=== PATIENT | male | born 1935 | race Caucasian/White ===

== ENCOUNTER 2016-07-01 14:43 | Inpatient (IN) | payer OTHER, BC ==
[~2016-07-01] VITALS: Ht 182.9 cm; Wt 104.3 kg
--- NOTE | ~2016-07-01 | D ---
[facility] [place] [address] DISCHARGE SUMMARY Name: KT HALE Room #: 418-P [facility] IN M.R.#: [id number] Admission: 07/01/16 Attend Phys: Jayne Molina Discharge: 07/07/16 Date of : 37 Report #: [id number] THIS REPORT FOR: //name// CC: Davi Angulo FINAL DIAGNOSES: 1. Acute bronchitis. 2. Acute on chronic diastolic congestive heart failure. 3. Esophageal dysmotility. 4. Chronic myasthenia gravis. 5. Diabetes type 2. 6. Senile dementia. PROCEDURES: EGD with esophageal dilatation. HOSPITAL COURSE: The patient was admitted from his assisted living facility with cough, congestion, shortness of breath and was concerned of possible congestive heart failure. Diuretics were administered. He also had slightly elevated white count and antibiotics were added for empiric coverage of bronchitis. He was having difficulty swallowing. Speech therapy assessed him; they felt this was a mechanical issue. EGD was performed by the GI service. He had Schatzki ring in an esophageal area that was dilated. This seemed to improve his symptoms. Echocardiogram revealed an ejection fraction 55-60%, a consideration of diastolic congestive heart failure. This cough, congestion and edema improved with diuretics. Blood sugars were monitored and insulin adjusted accordingly. He was pleasantly confused during his stay consistent with his baseline dementia. Neurology service assessed given his history of myasthenia gravis and they did not recommend any change in his medication at this time. PHYSICAL EXAMINATION: VITAL SIGNS: On the day of discharge, he was awake and alert, sitting up in the wheelchair in no distress. He was afebrile with blood pressure 124/62 and O2 sat 90% on room air. LUNGS: Clear. HEART: Regular. ABDOMEN: Soft. EXTREMITIES: Showed just trace ankle edema. DISPOSITION: He will transfer to the [facility] for physical, occupational and speech therapy, diabetic diet and activity as tolerated. Follow up with Dr. Angulo in 3 weeks. I signed his transfer medication list. He will continue Zithromax for an additional 3 days. <ELECTRONICALLY SIGNED> By: Robert Kelley MD 07/07/16 1730 1404 1621 Robert Kelley MD /nt
--- NOTE | ~2016-07-01 | H ---
[facility] [place] [address] HISTORY AND PHYSICAL Name: KT HALE Room #: 418-P ADM IN .R.#: [id number] Admission: 07/01/16 Attend Phys: Jayne Molina Discharge: Date of : 37 Report #: [id number] THIS REPORT FOR: //name// CC: Davi Angulo DATE OF SERVICE: 07/01/2016 CHIEF COMPLAINT: Shortness of breath. HISTORY OF PRESENT ILLNESS: The patient is a 80-year-old gentleman who was admitted through the Emergency Room from the ____ with shortness of breath. All the history is obtained from his son as the patient has some short term memory loss and mild dementia and really could not give any details of the history. The son said he has had some swelling now, progressively worsening over the last several months. He had an echocardiogram taken in ____ [facility] within the last month or so, but does not know those results. His diuretic dose had been doubled at the ____ and he had improvement in some of the swelling; however, in the last few days, he is still progressively short of breath and has been coughing up phlegm and mucus. He was brought to the Emergency Room today. PAST MEDICAL HISTORY: Myasthenia gravis mainly ocular and oropharyngeal symptoms, diabetes type 2, heart disease, pneumonia, hypertension. PAST SURGICAL HISTORY: He has had prostatectomy, I believe, for prostate cancer; cardiac bypass 4-vessel years ago; hip replacement in 2014 due to a fall and fracture; pacemaker implant 2007. FAMILY MEDICAL HISTORY: Noncontributory. SOCIAL HISTORY: As mentioned, he has been living at the ____ for about 2 years. Per son he has become progressively weak. No chronic alcohol or tobacco use. ALLERGIES: None. MEDICATIONS: Fosamax, calcium, Coreg 12.5 mg b.i.d., cholestyramine, Lexapro 10 mg, Lasix 40 mg, losartan 100 mg, multivitamin, Prilosec, potassium 20 mEq, prednisone 50 mg a day, pyridostigmine 60 mg 2 tabs t.i.d., Zocor 10 mg, Humalog 12 units with meals, Lantus 25 units at bedtime, tramadol, aspirin, DuoNeb, Tylenol. REVIEW OF SYSTEMS: He has had some cough and congestion. He denies chest pain, nausea, vomiting, diarrhea, constipation, dysuria, syncope, falls. PHYSICAL EXAMINATION: VITAL SIGNS: Per the nursing note. GENERAL: He is awake and alert, sitting up in [place] [address] HISTORY AND PHYSICAL Name: KT HALE Room #: 418-P [facility] IN M.R.#: [id number] Admission: 07/01/16 Attend Phys: Jayne Molina Discharge: Date of : 37 Report #: [id number] HEENT: Extraocular movements are intact. NECK: No JVD. LUNGS: Diminished breath sounds, clear anteriorly. HEART: Regular, no murmur. ABDOMEN: Soft, normoactive bowel sounds. EXTREMITIES: 1+ ankle edema. NEUROLOGIC: Motor strength 4/5 throughout. BNP was 2200. Urinalysis was negative. White count was 14.8. Chest x-ray was interpreted as clear, but there is some central venous congestion, pacemaker is noted. ASSESSMENT: 1. Acute decompensated congestive heart failure. 2. Acute bronchitis. 3. Diabetes type 2. 4. Chronic myasthenia gravis. 5. Hypertension. 6. Mild senile dementia. PLAN: He is admitted to telemetry. Lasix and empiric antibiotics for now. I will ask the Neurology and Cardiology team to see him and repeat the echocardiogram. Lovenox for DVT prophylaxis. <ELECTRONICALLY SIGNED> By: Robert Kelley MD 07/02/16 0937 1808 1859 Robert Kelley MD /nt
--- NOTE | ~2016-07-01 | 2DMMODE ---
[facility] [place] [address] 2 D/M-MODE ECHOCARDIOGRAM Name: KT HALE Room #: 418-P [facility] IN ..#: [id number] Admission: 07/01/16 Attend Phys: Davi Barnes Discharge: Date of : 37 Date of Service: 07/02/16 0841 Report #: [id number] THIS REPORT FOR: //name// Transthoracic Echocardiography Ordering physician: Robert Kelley Referring physician: Davi Angulo David W. Billing Representative: Sayda Puentes Indications/History: Short of air. CHF. Hx: CABG, pacemaker, CHF, CM, DM, HTN BP: 125 / HR: 63bpm Height: 72in Weight: 230.5lb 53 Study data: M-mode, complete 2D, complete spectral Doppler, and color Doppler. Location: Bedside. Routine. Image quality was adequate. The study was technicallydifficult due to body habitus. 2D measurements Normal Normal LVID ED 43.2mm 36-57 IVS ED 12.6mm 6-11 LVID ES 27.3mm 23-40 LVPW ED 11.9mm 6-11 LA volume 28ml/m2 16-28 AoRoot diam 37mm 21-37 index ED LVOT diameter 21mm 18-23 Findings: Left ventricle: The cavity size was normal. Wall thickness was increased in a pattern of mild LVH. Systolic function was normal. The estimated ejection fraction was in the range of 55% to 60%. Wall motion was normal. Right ventricle: Not well visualized. The cavity size appears dilated with preserved function. Right atrium: The atrium was dilated. Pacer wire or catheter noted in right atrium. Left atrium: The atrium was mildly dilated. Volume index: 28ml/m2 (S). Aortic valve: Trileaflet; moderately thickened, moderately [facility] [address] [place] [address] 2 D/M-MODE ECHOCARDIOGRAM Name: KT HALE Room #: 418-P [facility] IN [facility]#: [id number] Admission: 07/01/16 Attend Phys: Davi Barnes Discharge: Date of : 37 Date of Service: 07/02/16 0841 Report #: [id number] calcified leaflets. Doppler: There was mild stenosis. Valve area of 1.5cm2 by continuity equation. No regurgitation. Peak velocity: 248.9cm/s (S). Mean gradient: 12.3mm Hg (S). Peak gradient: 24.8mm Hg (S). Mitral valve: Moderately calcified annulus. Mildly thickened leaflets . Doppler: There was no evidence for stenosis. Mild regurgitation. Peak E-wave velocity: 130.1cm/s. Peak gradient: 6.8mm Hg (D). Peak A-wave velocity: 142.7cm/s. Tricuspid valve: Structurally normal valve. Doppler: There was no evidence for stenosis. Mild-moderate regurgitation. Regurgitant peak velocity: 352.9cm/s. Peak RV-RA gradient: 50mm Hg (S). Pulmonic valve: Structurally normal valve. Doppler: There was no evidence for stenosis. Trivial regurgitation. Pericardium: There was no pericardial effusion. Aorta: Aortic root: The aortic root measured at the upper limits of normal. Ascending aorta was also at the upper limits of normal. Pulmonary artery: Systolic pressure was estimated to be 60mm Hg. Diastolic function: Doppler parameters are consistent with abnormal left ventricular relaxation (grade 1 diastolic dysfunction). Systemic veins: Inferior vena cava: The vessel was dilated; the respirophasic diameter changes were in the normal range (= 50%). Conclusions 1. Left ventricle: Systolic function was normal. The estimated ejection fraction was in the range of 55% to 60%. Wall motion was normal. 2. Aortic valve: Trileaflet; moderately thickened, moderately calcified leaflets. There was mild stenosis. No regurgitation. Mean gradient: 12.3mm Hg (S). Peak gradient: 24.8mm Hg (S). 3. Mitral valve: Moderately calcified annulus. Mildly thickened leaflets . There was no evidence for stenosis. Mild regurgitation. 4. Pericardium, extracardiac: There was no pericardial effusion. [facility] [place] [address] 2 D/M-MODE ECHOCARDIOGRAM Name: KT HALE Room #: 418-P [facility] IN [facility]#: [id number] Admission: 07/01/16 Attend Phys: Davi Barnes Discharge: Date of : 37 Date of Service: 07/02/16 0841 Report #: [id number] 5. Pulmonary arteries: Systolic pressure was estimated to be 60mm Hg. <ELECTRONICALLY SIGNED> By: Alexandru Hdz MD, [facility] 07/02/16 1010 0841 09 Alexandru Hdz MD, FACC /mendy
--- NOTE | ~2016-07-01 | EKG ---
[place] [address] [facility] [place] [address] ELECTROCARDIOGRAM REPORT Name: KT HALE Room #: REG Marya#: [id number] Admission: 07/01/16 Attend Phys: Discharge: Date of : 37 Report #: [id number] THIS REPORT FOR: //name// [facility] ED Test Date: 2016-07-01 Test Time: 15:12:52 Pat Name: KT HALE Department: Room: Gender: M Front Worker: [id number] : 1935 Requested By: Blanca Beverly Order Number: [id number] MD: Pola Syed Measurements Intervals [place] Rate: 60 P: [place]: 92 QRS: -59 QRSD: 144 T: 127 QT: 540 QTc: 540 Interpretive Statements Ventricular-paced complexes No further analysis attempted due to paced rhythm Baseline wander in lead(s) V1,V2 No previous ECG available for comparison Electronically Signed On 07-01-2016 16:51:17 [employer] by Ploa Syed [email or web address] <ELECTRONICALLY SIGNED> By: Pola Syed MD 07/01/16 1651 1512 151 Pola Syed MD /HARSHAD
[2016-07-01 14:46] VITALS: BP 162/128
[2016-07-01] MEDS ORDERED: ALENDRONATE SOD70 MG PO (15:22)
[2016-07-01] MEDS ORDERED: TUMS PO (15:23)
[2016-07-01] MEDS ORDERED: CARVEDILOL12.5 MG PO (15:24)
[2016-07-01] MEDS ORDERED: CHOLESTYRAMINE P4 GM PO (15:25)
[2016-07-01] MEDS ORDERED: LEXAPRO 10 MG T10 M1 PO (15:25)
[2016-07-01] MEDS ORDERED: LIDODERM 5%1 PATC1 TRANSDERM (15:26)
[2016-07-01] MEDS ORDERED: LOSARTAN POTAS100 MG PO (15:27)
[2016-07-01] MEDS ORDERED: UNICOMPLEX M TA1 TA1 PO (15:28)
[2016-07-01] MEDS ORDERED: OMEPRAZOLE 20 M20 M1 PO (15:28)
[2016-07-01] MEDS ORDERED: POTASSIUM20 PO (15:28)
[2016-07-01] MEDS ORDERED: PREDNISONE 10 M10 MG PO (15:29)
[2016-07-01] MEDS ORDERED: PREDNISONE 5 MG5 M1 PO (15:29)
[2016-07-01] MEDS ORDERED: PYRIDOSTIGMINE60 M1 PO (15:30)
[2016-07-01] MEDS ORDERED: ZOCOR 10 MG TAB10 MG PO (15:30)
[2016-07-01] MEDS ORDERED: HUMALOG100 UNIT/2 SQ (15:31)
[2016-07-01] MEDS ORDERED: LANTUS SUBQ (15:32)
[2016-07-01] MEDS ORDERED: TRAMADOL 50 MG50 MG PO (15:32)
[2016-07-01] MEDS ORDERED: TYLENOL325 MG PO (15:33)
[2016-07-01] MEDS ORDERED: ALBUTEROL2.5 MG/0.5 INH (15:33)
[2016-07-01] MEDS ORDERED: LASIX 40 MG TAB40 M2 PO (15:34)
[2016-07-01] MEDS ORDERED: MIRALAX255 GM PO (15:34)
[2016-07-01] MEDS ORDERED: ASPIR 8181 M1 PO (15:35)
[2016-07-01 15:41] LABS: HEMATOCRIT 33.7 % (42.0-52.0); HEMOGLOBIN 10.4 gm/dL (14.0-18.0); MCH 24.3 pg (26.0-34.0); MCHC 30.7 % (28.0-37.0); MCV 79.1 fL (80.0-100.0); PLATELET COUNT 387 thou/uL (150-400); RBC 4.27 mil/uL (4.50-6.00); WBC 14.8 thou/uL (4.0-11.0)
[2016-07-01 15:42] LABS: MANUAL DIFF YES
[2016-07-01 15:54] LABS: ANION GAP 7 mmol/L (7-16); BUN 21 mg/dL (7-18); CALCIUM 8.6 mg/dL (8.5-10.1); CHLORIDE 103 mmol/L (98-107); CO2 30 mmol/L (21-32); CREATININE 1.3 mg/dL (0.6-1.3); GLUCOSE 95 mg/dL (70-99); POTASSIUM 4.2 mmol/L (3.5-5.1); SODIUM 140 mmol/L (136-145)
[2016-07-01 16:02] LABS: ALKALINE PHOSPHATASE 75 U/L (46-116); SGOT 21 U/L (15-37); SGPT 20 U/L (30-65); TOTAL BILIRUBIN 0.5 mg/dL (<0.1-1.0); TOTAL PROTEIN 6.4 g/dL (6.4-8.2); TROPONIN-I < 0.04 ng/mL (<0.04-0.07)
[2016-07-01 16:13] LABS: ABSOLUTE NEUTROPHILS 13.3 thou/uL (1.4-8.2); POIKILOCYTOSIS SLIGHT; POLYCHROMASIA OCCASIONAL; TOTAL CELL COUNT 100
[2016-07-01 16:14] LABS: ANISOCYTOSIS 2+; MICROCYTES SLIGHT
[2016-07-01 16:36] LABS: URINE BILIRUBIN NEGATIVE (Negative); URINE BLOOD NEGATIVE (Negative); URINE COLOR YELLOW; URINE GLUCOSE-RANDOM* NEGATIVE (Negative); URINE KETONES NEGATIVE (Negative); URINE NITRITE NEGATIVE (Negative); URINE PROTEIN (DIPSTICK) NEGATIVE (Negative); URINE SPECIFIC GRAVITY 1.025 (1.003-1.035); URINE UROBILINOGEN 0.2 E.U./dl (0.2-1.0)
[2016-07-01 19:39] VITALS: BP 111/61
[2016-07-01 20:15] VITALS: BP 99/42
[2016-07-02 05:25] VITALS: BP 123/54
[2016-07-02 06:31] LABS: HEMATOCRIT 32.6 % (42.0-52.0); HEMOGLOBIN 10.2 gm/dL (14.0-18.0); MCH 24.3 pg (26.0-34.0); MCHC 31.2 % (28.0-37.0); RBC 4.19 mil/uL (4.50-6.00); RDW 16.9 % (10.5-14.5); WBC 12.9 thou/uL (4.0-11.0)
[2016-07-02 06:47] LABS: CALCIUM 8.3 mg/dL (8.5-10.1); CREATININE 1.2 mg/dL (0.6-1.3)
[2016-07-02 07:39] VITALS: BP 125/53
[2016-07-02 17:36] VITALS: BP 141/79
[2016-07-02 20:00] VITALS: BP 140/93
[2016-07-03 04:30] VITALS: BP 129/78
[2016-07-03 06:21] LABS: HEMATOCRIT 34.9 % (42.0-52.0); HEMOGLOBIN 10.4 gm/dL (14.0-18.0); RBC 4.36 mil/uL (4.50-6.00); RDW 17.2 % (10.5-14.5); WBC 13.4 thou/uL (4.0-11.0)
[2016-07-03 06:42] LABS: CALCIUM 8.8 mg/dL (8.5-10.1); CREATININE 1.4 mg/dL (0.6-1.3)
[2016-07-03 07:40] VITALS: BP 99/58
[2016-07-03 16:32] VITALS: BP 117/55
[2016-07-03 20:00] VITALS: BP 129/78
[2016-07-04 04:00] VITALS: BP 152/84
[2016-07-04 05:58] LABS: ABSOLUTE NEUTROPHILS 10.1 thou/uL (1.4-8.2); BASOPHILS 0.2 % (0.0-2.0); EOSINOPHILS 0.1 % (0.0-3.0); HEMATOCRIT 35.2 % (42.0-52.0); HEMOGLOBIN 10.8 gm/dL (14.0-18.0); LYMPHOCYTES 10.3 % (24.0-44.0); MCH 24.4 pg (26.0-34.0); MCHC 30.7 % (28.0-37.0); MCV 79.6 fL (80.0-100.0); MONOCYTES 9.9 % (1.0-8.0); PLATELET COUNT 347 thou/uL (150-400); POLYS 79.5 % (36.0-66.0); RBC 4.42 mil/uL (4.50-6.00); RDW 16.9 % (10.5-14.5); WBC 12.7 thou/uL (4.0-11.0)
[2016-07-04 06:08] LABS: MANUAL DIFF NO
[2016-07-04 06:28] LABS: CALCIUM 8.7 mg/dL (8.5-10.1); CREATININE 1.5 mg/dL (0.6-1.3); POTASSIUM 3.8 mmol/L (3.5-5.1)
[2016-07-04 07:31] VITALS: BP 156/89
[2016-07-04 15:45] VITALS: BP 144/76
[2016-07-04 20:00] VITALS: BP 163/88
[2016-07-05 04:00] VITALS: BP 141/77
[2016-07-05 05:39] LABS: HEMATOCRIT 35.9 % (42.0-52.0); HEMOGLOBIN 10.8 gm/dL (14.0-18.0); MCH 23.8 pg (26.0-34.0); MCV 79.2 fL (80.0-100.0); RBC 4.53 mil/uL (4.50-6.00); RDW 16.7 % (10.5-14.5); WBC 13.3 thou/uL (4.0-11.0)
[2016-07-05 05:59] LABS: CALCIUM 8.4 mg/dL (8.5-10.1); CREATININE 1.4 mg/dL (0.6-1.3)
[2016-07-05 06:05] LABS: POTASSIUM 2.9 mmol/L (3.5-5.1)
[2016-07-05 07:38] VITALS: BP 115/83
[2016-07-05 15:30] VITALS: BP 98/47
[2016-07-05 19:33] VITALS: BP 114/52
[2016-07-06 05:22] VITALS: BP 126/68
[2016-07-06 06:31] LABS: HEMATOCRIT 32.2 % (42.0-52.0); HEMOGLOBIN 10.1 gm/dL (14.0-18.0); MCHC 31.3 % (28.0-37.0); MCV 76.7 fL (80.0-100.0); RBC 4.2 mil/uL (4.50-6.00); RDW 16.8 % (10.5-14.5); WBC 12.2 thou/uL (4.0-11.0)
[2016-07-06 06:59] LABS: CALCIUM 8.1 mg/dL (8.5-10.1); CREATININE 1.3 mg/dL (0.6-1.3)
[2016-07-06 07:05] LABS: POTASSIUM 3.8 mmol/L (3.5-5.1)
[2016-07-06 07:42] VITALS: BP 125/67
[2016-07-06 15:06] VITALS: BP 125/65
[2016-07-06 20:00] VITALS: BP 111/70
[2016-07-07 04:30] VITALS: BP 121/62
[2016-07-07 07:36] VITALS: BP 124/62
[2016-07-07] MEDS ORDERED: AZITHROMYCIN 2250 MG PO (13:43)
[2016-07-07] MEDS ORDERED: FLOMAX0.4 MG PO (13:47)
== END 2016-07-07 16:35 | DRG 292 ==
LOC: ER 14:43 → 4E 17:29 → EROBS 17:29 → 4E 18:46
PROVIDERS: Internal Medicine Geriatric Medicine; Physician Assistant
PROC: 0D758ZZ Dilation of Esophagus, Via Natural or Artificial Opening Endoscopic (ICD-10-PCS; principal; 2016-07-06)
DX: I50.43 Acute on chronic combined systolic (congestive) and diastolic (congestive) heart failure (principal); I85.00 Esophageal varices without bleeding; I42.9 Cardiomyopathy, unspecified; J20.9 Acute bronchitis, unspecified; K22.2 Esophageal obstruction; I11.0 Hypertensive heart disease with heart failure; K57.90 Diverticulosis of intestine, part unspecified, without perforation or abscess without bleeding; G70.00 Myasthenia gravis without (acute) exacerbation; K22.4 Dyskinesia of esophagus; F03.90 Unspecified dementia, unspecified severity, without behavioral disturbance, psychotic disturbance, mood disturbance, and anxiety; I25.10 Atherosclerotic heart disease of native coronary artery without angina pectoris; E78.5 Hyperlipidemia, unspecified; Z96.649 Presence of unspecified artificial hip joint; E78.00 Pure hypercholesterolemia, unspecified; Z96.89 Presence of other specified functional implants; D72.829 Elevated white blood cell count, unspecified; K29.70 Gastritis, unspecified, without bleeding; E11.9 Type 2 diabetes mellitus without complications; K29.80 Duodenitis without bleeding; Z85.46 Personal history of malignant neoplasm of prostate; Z79.899 Other long term (current) drug therapy; Z79.4 Long term (current) use of insulin; Z95.1 Presence of aortocoronary bypass graft; Z79.82 Long term (current) use of aspirin
CPT/HCPCS: 10183; 62110; 62900; 70005

== ENCOUNTER 2016-08-30 14:51 | Inpatient (IN) | payer OTHER, BC ==
[~2016-08-30] VITALS: Ht 182.9 cm; Wt 103.0 kg
--- NOTE | ~2016-08-30 | H ---
[facility] [place] [address] HISTORY AND PHYSICAL Name: KT HALE Room #: 537-P ADM IN M.R.#: [id number] Admission: 08/30/16 Attend Phys: Jayne Molina Discharge: Date of : 37 Report #: [id number] THIS REPORT FOR: //name// CC: Davi Angulo CHIEF COMPLAINT: A 80-year-old male with left upper extremity swelling. HISTORY OF PRESENT ILLNESS: This is a patient of the last few days has had marked increase in left arm swelling from the mid arm down all the way to the fingertips. There was no associated redness. There has been no associated fevers, chills or sweats, but the area now is draining despite elevation and further time. PAST MEDICAL HISTORY: Noteworthy for a history of myasthenia gravis, hypertension, ischemic heart disease and diabetes. He has had prostate cancer with prostatectomy. PAST SURGICAL HISTORY: Coronary artery bypass grafting x 4 vessels, hip replacement in 2015. He has had a urinary sphincter implant, appendectomy and pacemaker insertion. FAMILY HISTORY: Noncontributory. MEDICATIONS: List includes alendronate, carvedilol, Lexapro, Lasix, losartan, omeprazole, potassium chloride, prednisone, pyridostigmine, simvastatin, Lantus and Humalog, tramadol, aspirin, aerosolized albuterol and Coumadin, but his INR was only 1.1. REVIEW OF SYSTEMS: Otherwise, negative. PHYSICAL EXAMINATION: GENERAL: Shows him accompanied by his [id number] and he is uncomfortable with his left arm pain. HEENT: Otherwise, negative. NECK: Supple, without thyromegaly or adenopathy. CHEST: Clear. CARDIOVASCULAR: Shows a regular rate and rhythm. ABDOMEN: Soft and nontender. EXTREMITIES: Negative. NEUROLOGIC: Nonfocal. The left upper extremity was markedly swollen and edematous and draining clear serous fluid. ASSESSMENT: This is a patient with severe swelling left upper extremity with [facility] [address] [place] [address] HISTORY AND PHYSICAL Name: GEOFFREYKT Odalys Room #: 537-P [facility] IN [facility].#: [id number] Admission: 08/30/16 Attend Phys: Jayne Molina Discharge: Date of : 37 Report #: [id number] DVT being a rule out diagnosis. I think this is critical enough that it required immediate evaluation and inpatient management. By: [id number] [id number] Davi Angulo MD /nt
--- NOTE | ~2016-08-30 | D ---
[facility] [place] [address] DISCHARGE SUMMARY Name: KT HALE Room #: 537-P [facility] IN M.R.#: [id number] Admission: 08/30/16 Attend Phys: Jayne Molina Discharge: 09/02/16 Date of : 37 Report #: [id number] THIS REPORT FOR: //name// CC: Davi Angulo DATE OF SERVICE: 09/02/2016 FINAL DIAGNOSES: 1. Acute deep vein thrombosis of the left subclavian. 2. Diabetes type 2. 3. Hypertension. 4. Anemia of chronic disease. HOSPITAL COURSE: The patient was admitted with swelling of his left arm, ultrasound revealed a DVT. He was placed on Lovenox and then converted to Xarelto. Other lab data was obtained, PSA was normal and a hypercoagulable state panel, still pending at the time of discharge. Chest x-ray was unremarkable consistent with x-rays from June of this year. CT of the abdomen with oral contrast did not show any solids masses of the bowel or solid organs. There was no definitive cause identify for the DVT of the left arm. Swelling was slowly subsiding during the stay. PHYSICAL EXAMINATION: GENERAL: On the day of discharge, he was awake and alert. VITAL SIGNS: Temperature is 36.9, pulse , respirations 16, blood pressure 139/78, O2 sat was 98% on room air. LUNGS: Clear. HEART: Regular. ABDOMEN: Soft. EXTREMITIES: Showed no edema in the legs, there was still 2-3+ pitting edema of the left arm. DISPOSITION: To be discharged to home to his assisted living facility with diet and activity as tolerated. He will continue all home medications plus Xarelto 15 mg b.i.d. for 3 weeks, then 20 mg a day there after. BNP and CBC in one week and follow up with Dr. Angulo in 1-2 weeks. <ELECTRONICALLY SIGNED> By: Robert Kelley MD 09/06/16 1300 1036 1119 Robert Kelley MD /nt
[~2016-08-30 14:51] MED LIST: ALBUTEROL2.5 MG/0.5 INH; ALENDRONATE SOD70 MG PO; ASPIR 8181 M1 PO; AZITHROMYCIN 2250 MG PO; CARVEDILOL12.5 MG PO; CHOLESTYRAMINE P4 GM PO; FLOMAX0.4 MG PO; HUMALOG100 UNIT/2 SQ; LANTUS SUBQ; LASIX 40 MG TAB40 M2 PO; LEXAPRO 10 MG T10 M1 PO; LIDODERM 5%1 PATC1 TRANSDERM; LOSARTAN POTAS100 MG PO; MIRALAX255 GM PO; OMEPRAZOLE 20 M20 M1 PO; POTASSIUM20 PO; PREDNISONE 10 M10 MG PO; PREDNISONE 5 MG5 M1 PO; PYRIDOSTIGMINE60 M1 PO; TRAMADOL 50 MG50 MG PO; TUMS PO; TYLENOL325 MG PO; UNICOMPLEX M TA1 TA1 PO; ZOCOR 10 MG TAB10 MG PO
[2016-08-30 19:52] LABS: HEMATOCRIT 28.1 % (42.0-52.0); HEMOGLOBIN 8.9 gm/dL (14.0-18.0); MANUAL DIFF YES; MCH 24.5 pg (26.0-34.0); MCHC 31.8 g/dL (28.0-37.0); MCV 77.1 fL (80.0-100.0); PLATELET COUNT 365 thou/uL (150-400); RBC 3.64 mil/uL (4.50-6.00); RDW 19.2 % (10.5-14.5); WBC 12.2 thou/uL (4.0-11.0)
[2016-08-30 20:08] LABS: ALBUMIN 2.4 g/dL (3.4-5.0); CALCIUM 8.1 mg/dL (8.5-10.1); CREATININE 1.3 mg/dL (0.6-1.3); POTASSIUM 4.5 mmol/L (3.5-5.1); TOTAL BILIRUBIN 0.3 mg/dL (<0.1-1.0); TOTAL PROTEIN 5.6 g/dL (6.4-8.2)
[2016-08-30 20:16] LABS: ABSOLUTE NEUTROPHILS 11.2 thou/uL (1.4-8.2); TOTAL CELL COUNT 100
[2016-08-31 00:43] LABS: URINE BILIRUBIN NEGATIVE (Negative); URINE BLOOD NEGATIVE (Negative); URINE COLOR YELLOW; URINE GLUCOSE-RANDOM* TRACE (Negative); URINE KETONES NEGATIVE (Negative); URINE NITRITE NEGATIVE (Negative); URINE PROTEIN (DIPSTICK) NEGATIVE (Negative); URINE UROBILINOGEN 0.2 E.U./dl (0.2-1.0)
[2016-08-31 13:05] LABS: HEMATOCRIT 29.1 % (42.0-52.0); HEMOGLOBIN 9.1 gm/dL (14.0-18.0); MCH 24.3 pg (26.0-34.0); MCHC 31.2 g/dL (28.0-37.0); MCV 77.8 fL (80.0-100.0); RBC 3.74 mil/uL (4.50-6.00); RDW 18.2 % (10.5-14.5); WBC 12.4 thou/uL (4.0-11.0)
[2016-09-02 01:09] LABS: ANTITHROMBIN III 108 % (75-135); DIL. RUSSELL VIPER VENOM 50.3 sec (0.0-44.0)
[2016-09-02 05:20] LABS: HEMOGLOBIN 9.8 gm/dL (14.0-18.0); MCH 25.2 pg (26.0-34.0); MCHC 32.5 g/dL (28.0-37.0); MCV 77.4 fL (80.0-100.0); RBC 3.88 mil/uL (4.50-6.00); RDW 18.6 % (10.5-14.5); WBC 9.8 thou/uL (4.0-11.0)
[2016-09-02 05:34] LABS: CALCIUM 8.5 mg/dL (8.5-10.1); CREATININE 1.1 mg/dL (0.6-1.3); POTASSIUM 3.8 mmol/L (3.5-5.1)
[2016-09-02] MEDS ORDERED: XARELTO15 MG PO (10:14)
[2016-09-02] MEDS ORDERED: XARELTO20 MG PO (10:16)
== END 2016-09-02 14:02 | disposition home or self-care (01) | DRG 299 ==
LOC: 5S 14:51
PROVIDERS: Internal Medicine; Internal Medicine Geriatric Medicine
DX: I82.622 Acute embolism and thrombosis of deep veins of left upper extremity (principal); E43 Unspecified severe protein-calorie malnutrition; D63.8 Anemia in other chronic diseases classified elsewhere; E11.9 Type 2 diabetes mellitus without complications; I11.9 Hypertensive heart disease without heart failure; Z96.649 Presence of unspecified artificial hip joint; Z90.49 Acquired absence of other specified parts of digestive tract; Z85.46 Personal history of malignant neoplasm of prostate; Z95.1 Presence of aortocoronary bypass graft; Z95.0 Presence of cardiac pacemaker
CPT/HCPCS: 10785